=== PATIENT | female | born 1935 | race Caucasian/White ===

== ENCOUNTER 2017-08-14 17:19 | Inpatient (IN) | payer OTHER ==
[~2017-08-14] VITALS: Ht 167.6 cm; Wt 74.5 kg
[2017-08-14] MEDS ORDERED: ASPirin 81 mg TAB PO ONE (18:45)
[2017-08-14 19:30] LABS: Basophils # (auto) 0.1 uL; Basophils % (auto) 0.8 % (0.0-2.0); Eosinophils # (auto) 0.1 uL; Eosinophils % (auto) 1.2 % (0.0-7.0); Hematocrit 38.2 % (36.0-46.0); Hemoglobin 12.9 g/dL (12.2-16.2); Lymphocytes # (auto) 3.6 uL; Lymphocytes % (auto) 30.1 % (10.0-50.0); Mean Corpuscular Hemoglobin 28.8 pg (28.0-32.0); Mean Corpuscular Hgb Conc. 33.8 g/dL (32.0-36.0); Mean Corpuscular Volume 85.1 fL (80.0-100.0); Monocytes # (auto) 1.1 uL; Monocytes % (auto) 9.2 % (0.0-12.0); Neutrophils # (auto) 7.1 uL; Neutrophils % (auto) 58.7 % (37.0-80.0); Nucleated Red Blood Cells % 0.1 %; Platelet Count (auto) 255 10^3/uL (140-450); Red Blood Cells 4.49 10^6/uL (4.0-5.20); Red Cell Distribution Width 13.3 % (11.8-14.3)
[2017-08-14 19:45] LABS: INR 0.92 (0.9-1.15); Partial Thromboplastin Time 26.1 sec (23.78-33.04); Prothrombin Time 9.9 sec (9.27-12.13)
[2017-08-14 19:52] LABS: Urine Bacteria MANY /hpf (None Seen); Urine Blood Negative /uL (Negative); Urine Mucus FEW (None Seen); Urine Specific Gravity 1.019 (1.001-1.035); Urine WBC 3 /hpf (0 - 5)
[2017-08-14 20:01] LABS: Alanine Aminotransferase 18 U/L (13-56); Alkaline Phosphatase 58 U/L (45-117); Anion Gap 8 (5-15); Aspartate Aminotransferase 15 U/L (15-37); BUN/Creatinine Ratio 16.3; Bilirubin, Total 0.2 mg/dL (0.2-1.0); Blood Urea Nitrogen 13 mg/dL (7-18); Calcium 8.8 mg/dL (8.5-10.1); Carbon Dioxide 22 mmol/L (21-32); Chloride 104 mmol/L (98-107); GFR African American 88 mL/min; GFR Non-African American 73 mL/min; Glucose 179 mg/dL (74-106); Potassium 4.4 mmol/L (3.5-5.1); Sodium 134 mmol/L (136-145)
[2017-08-14] MEDS ORDERED: PHENAZOPYRIDINE HCL 100 MG TAB PO ONE (23:45)
[2017-08-15] MEDS ORDERED: ONDANSETRON HCL 4 MG/2 ML VIAL IV PRN (01:00)
[2017-08-15] MEDS ORDERED: TEMAZEPAM 15 MG CAP PO PRN (01:00)
[2017-08-15] MEDS ORDERED: NITROGLYCERIN 0.4 MG SL TAB SL PRN (01:00)
[2017-08-15] MEDS ORDERED: METOPROLOL TARTRATE 50 MG TAB PO ONE (01:00)
[2017-08-15] MEDS ORDERED: ACETAMINOPHEN 325 MG TAB PO PRN (01:00)
[2017-08-15] MEDS ORDERED: DEXTROSE (50%) 50ML SYRG IV PRN (01:00)
[2017-08-15 02:45] VITALS: BP 149/72
[2017-08-15 04:57] VITALS: BP 149/72
[2017-08-15] MEDS: ACCU-CHEK COMFORT CURVE STRIP VI SCH ×3 (05:49→17:27)
[2017-08-15] MEDS: InsuLIN REG 1unit/0.01ml Soln (100units/ml) SC SCH ×3 (05:54→17:27)
[2017-08-15] MEDS ORDERED: LEVOTHYROXINE SODIUM 25 MCG TAB PO SCH (06:00)
[2017-08-15 08:00] VITALS: BP 133/60
[2017-08-15 09:00] VITALS: BP 133/60
[2017-08-15 09:10] LABS: Albumin 2.6 g/dL (3.4-5.0); BUN/Creatinine Ratio 15.8; Bilirubin, Total 0.2 mg/dL (0.2-1.0); Calcium 8.5 mg/dL (8.5-10.1); Potassium 4.3 mmol/L (3.5-5.1); Total Protein 6.6 g/dL (6.4-8.2)
[2017-08-15 09:12] LABS: INR 1.06 (0.9-1.15); Partial Thromboplastin Time 29.2 sec (23.78-33.04); Prothrombin Time 11.3 sec (9.27-12.13)
[2017-08-15] MEDS ORDERED: cloNIDine HCL 0.1 MG TAB PO SCH (10:00)
[2017-08-15] MEDS ORDERED: METOPROLOL TARTRATE 50 MG TAB PO SCH (10:00)
[2017-08-15] MEDS ORDERED: FAMOTIDINE 20 MG TAB PO SCH (10:00)
[2017-08-15] MEDS ORDERED: ISOSORBIDE MONONITRATE 60 MG TAB PO SCH (10:00)
[2017-08-15] MEDS ORDERED: VALS1TAB58 PO (12:25)
[2017-08-15] MEDS ORDERED: METO-169 PO (12:25)
[2017-08-15] MEDS ORDERED: FURO40TA PO (12:25)
[2017-08-15] MEDS ORDERED: PANT1INJ3 IV (12:25)
[2017-08-15] MEDS ORDERED: POTA-165 PO (12:25)
[2017-08-15] MEDS ORDERED: GLIP-116 PO (12:25)
[2017-08-15] MEDS ORDERED: EST0625T PO (12:25)
[2017-08-15 13:00] VITALS: BP 158/66
[2017-08-15] MEDS ORDERED: DIGOXIN 0.125 MG TAB PO ONE (14:45)
[2017-08-15] MEDS ORDERED: HYDROcodone-ACET 5/325MG TAB PO PRN (14:45)
[2017-08-15] MEDS ORDERED: WARFARIN SODIUM 2.5 MG TAB PO ONE (17:00)
[2017-08-15 17:31] VITALS: BP 156/74
[2017-08-16] MEDS ORDERED: DIGOXIN 0.125 MG TAB PO SCH (10:00)
== END 2017-08-15 20:15 | disposition short-term general hospital (02) | DRG 308 ==
LOC: ER 17:19 → TELE-WESTW 17:20
PROVIDERS: ADMIT Nurse Practitioner; ATTEND Family Medicine
DX: I48.91 Unspecified atrial fibrillation (principal); I50.41 Acute combined systolic (congestive) and diastolic (congestive) heart failure; E03.9 Hypothyroidism, unspecified; E11.9 Type 2 diabetes mellitus without complications; I11.0 Hypertensive heart disease with heart failure; E78.5 Hyperlipidemia, unspecified; I70.0 Atherosclerosis of aorta; Z90.710 Acquired absence of both cervix and uterus; Z90.49 Acquired absence of other specified parts of digestive tract; Z79.01 Long term (current) use of anticoagulants; Z79.82 Long term (current) use of aspirin; Z79.899 Other long term (current) drug therapy; Z88.5 Allergy status to narcotic agent; Z88.8 Allergy status to other drugs, medicaments and biological substances; Z88.2 Allergy status to sulfonamides; Z91.040 Latex allergy status; Z82.49 Family history of ischemic heart disease and other diseases of the circulatory system
CPT/HCPCS: 36415; 71045; 80053; 81001; 82962; 83735; 83880; 84443; 84484; 85025; 85379; 85610; 85730; 93005; 93306; 94761; J1815

== ENCOUNTER 2018-03-26 01:06 | Emergency (ER) | payer OTHER ==
[~2018-03-26] VITALS: Ht 167.6 cm; Wt 67.1 kg
[~2018-03-26 01:06] MED LIST: EST0625T PO; FURO40TA PO; GLIP-116 PO; METO-169 PO; PANT1INJ3 IV; POTA-180 PO; VALS1TAB58 PO
[2018-03-26 01:39] LABS: Basophils # (auto) 0.1 uL; Basophils % (auto) 0.7 % (0.0-2.0); Eosinophils # (auto) 0.2 uL; Eosinophils % (auto) 1.7 % (0.0-7.0); Hemoglobin 13.3 g/dL (12.2-16.2); Lymphocytes # (auto) 3.4 uL; Lymphocytes % (auto) 36.8 % (10.0-50.0); Mean Corpuscular Hemoglobin 27.8 pg (28.0-32.0); Mean Corpuscular Hgb Conc. 33.4 g/dL (32.0-36.0); Mean Corpuscular Volume 83.3 fL (80.0-100.0); Monocytes # (auto) 0.7 uL; Monocytes % (auto) 7.7 % (0.0-12.0); Neutrophils # (auto) 4.8 uL; Neutrophils % (auto) 53.1 % (37.0-80.0); Platelet Count (auto) 266 10^3/uL (140-450); Red Cell Distribution Width 14.4 % (11.8-14.3); White Blood Cell 9.1 10^3/uL (4.4-10.8)
[2018-03-26 01:53] LABS: INR 1.09 (0.9-1.15); Partial Thromboplastin Time 33.1 sec (23.78-33.04); Prothrombin Time 11.6 sec (9.27-12.13)
[2018-03-26 01:57] LABS: Alanine Aminotransferase 16 U/L (13-56); Albumin 2.9 g/dL (3.4-5.0); Anion Gap 12 (5-15); Aspartate Aminotransferase 12 U/L (15-37); BUN/Creatinine Ratio 16.7; Blood Urea Nitrogen 14 mg/dL (7-18); Calcium 8.1 mg/dL (8.5-10.1); Carbon Dioxide 23 mmol/L (21-32); Chloride 102 mmol/L (98-107); GFR African American 83 mL/min; GFR Non-African American 69 mL/min; Glucose 308 mg/dL (74-106); Magnesium 2.1 mg/dL (1.6-2.6); Potassium 4.1 mmol/L (3.5-5.1); Sodium 137 mmol/L (136-145)
[2018-03-26 02:01] LABS: Alkaline Phosphatase 63 U/L (45-117); Bilirubin, Total 0.2 mg/dL (0.2-1.0); Total Protein 6.8 g/dL (6.4-8.2)
[2018-03-26] MEDS: cloNIDine HCL 0.1 MG TAB PO ONE ×2 (03:01→03:18)
[2018-03-26] MEDS ORDERED: METOPROLOL TARTRATE 50 MG TAB PO ONE (03:30)
[2018-03-26 04:25] VITALS: BP 207/71
== END 2018-03-26 04:32 | disposition home or self-care (01) ==
LOC: ER 01:06
DX: R04.0 Epistaxis (principal); I10 Essential (primary) hypertension; I48.91 Unspecified atrial fibrillation; E11.9 Type 2 diabetes mellitus without complications; E78.5 Hyperlipidemia, unspecified; Z86.73 Personal history of transient ischemic attack (TIA), and cerebral infarction without residual deficits; Z86.39 Personal history of other endocrine, nutritional and metabolic disease; Z90.49 Acquired absence of other specified parts of digestive tract; Z90.710 Acquired absence of both cervix and uterus; Z88.2 Allergy status to sulfonamides; Z88.6 Allergy status to analgesic agent; Z91.040 Latex allergy status
CPT/HCPCS: 36415; 80053; 83735; 84484; 85025; 85610; 85730; 93005

== ENCOUNTER 2018-07-27 13:25 | Emergency (ER) | payer OTHER ==
[~2018-07-27] VITALS: Ht 167.6 cm; Wt 68.0 kg
[2018-07-27 13:44] VITALS: BP 139/62
[2018-07-27] MEDS ORDERED: cefTRIAXone SOD 1,000 MG VL IM ONE (14:30)
[2018-07-27] MEDS ORDERED: ACETAMINOPHEN 325 MG TAB PO ONE (14:30)
== END 2018-07-27 15:12 | disposition home or self-care (01) ==
LOC: ER 13:28
DX: S91.331A Puncture wound without foreign body, right foot, initial encounter (principal); E11.9 Type 2 diabetes mellitus without complications; E78.5 Hyperlipidemia, unspecified; I10 Essential (primary) hypertension; E07.9 Disorder of thyroid, unspecified; Z88.8 Allergy status to other drugs, medicaments and biological substances; Z88.5 Allergy status to narcotic agent; Z88.2 Allergy status to sulfonamides; Z91.040 Latex allergy status; Z79.899 Other long term (current) drug therapy; Z86.73 Personal history of transient ischemic attack (TIA), and cerebral infarction without residual deficits; Z90.49 Acquired absence of other specified parts of digestive tract; Z79.84 Long term (current) use of oral hypoglycemic drugs; Z90.710 Acquired absence of both cervix and uterus; X58.XXXA Exposure to other specified factors, initial encounter; Y93.89 Activity, other specified; Y99.8 Other external cause status; Y92.89 Other specified places as the place of occurrence of the external cause
CPT/HCPCS: 96372; 99283; J0696

== ENCOUNTER 2019-02-09 15:47 | Emergency (ER) | payer OTHER ==
[~2019-02-09] VITALS: Ht 167.6 cm; Wt 68.0 kg
[~2019-02-09 15:47] MED LIST changes: +FURO1TAB31 PO; -FURO40TA PO; -GLIP-116 PO; +GLIP10TA9 PO
[2019-02-09 16:00] VITALS: BP 130/77
[2019-02-09] MEDS ORDERED: HYDROcodone-ACET 5/325MG TAB PO ONE (17:45)
== END 2019-02-09 17:58 | disposition home or self-care (01) ==
LOC: ER 15:58
DX: K04.7 Periapical abscess without sinus (principal); G50.0 Trigeminal neuralgia; E11.9 Type 2 diabetes mellitus without complications; E78.5 Hyperlipidemia, unspecified; I10 Essential (primary) hypertension; Z90.49 Acquired absence of other specified parts of digestive tract; Z90.710 Acquired absence of both cervix and uterus; Z86.73 Personal history of transient ischemic attack (TIA), and cerebral infarction without residual deficits; Z88.2 Allergy status to sulfonamides; Z88.6 Allergy status to analgesic agent; Z91.040 Latex allergy status
CPT/HCPCS: 70450